=== PATIENT | female | born 1945 | race Caucasian/White ===

== ENCOUNTER → 2016-10-28 | Outpatient (CLI) | payer MEDICARE ==
[~2016-10-28] MED LIST: CELEXA20 MG PO; LEVOTHYROXIN0.112 M1 PO; PHENYTOIN 100M100 MG PO; SIMVASTATIN20 MG PO
--- NOTE | 2016-11-05 07:33 | RADIOLOGY REPORT PS360 ---
DIG MAMM-SCREEN JANIE W/CAD CAD Screening COMPARISON: None, previous mammograms have been purged INDICATION: There is a history of breast cancer in patient's sister diagnosed before menopause TECHNIQUE: Standard CC and MLO images were obtained. R2 CAD reviewed. FINDINGS: Moderate scattered fibro glandular densities are seen throughout both breasts. There are 2 asymmetric nodular densities right breast at least one of which likely is an intramammary node. There are benign-appearing calcination is in each breast. There are no suspicious microcalcifications. IMPRESSION: Fibrofatty parenchyma with asymmetric densities right breast likely benign but recommend patient return for spot compression views and ultrasound for additional evaluation. BI-RADS CATEGORY: 0_Incomplete: Need additional imaging RECOMMENDED FOLLOWUP: ADD ADDITIONAL IMAGING (A letter has been sent to the patient regarding results of the study.)
== END ==
LOC: RAD 09:24
DX: Z12.31 Encounter for screening mammogram for malignant neoplasm of breast (principal)
CPT/HCPCS: G0202

== ENCOUNTER → 2016-11-17 | Outpatient (CLI) | payer MEDICARE ==
--- NOTE | 2016-11-24 10:26 | RADIOLOGY REPORT PS360 ---
DIG MAMM-DX UNI A/VW-RT W/CAD, US BREAST-RT COMPLETE W/AXILLA COMPARISON: 10/28/2016. Older exams have been purged and are not available for review. Reports are made available. The images however are not available for review. The report is slightly delayed in hopes of obtaining old films for comparison. They however are not available having been purged. INDICATION: Follow-up abnormal mammogram ORDERING PHYSICIAN: Monica Fish MD PATIENT AGE: 71 years TECHNIQUE: Spot compression views are obtained along with right breast ultrasound. FINDINGS: The asymmetric density present in the upper outer aspect of the right breast is less apparent on focal spot compression views probably related asymmetric fibroglandular tissue. A focal nodular asymmetric density measuring 8 x 6 mm is present in the medial aspect of the right breast near the 3:00 region. This does not dissipate on the focal spot compression views. There are some faint calcifications also present in this region. Right breast ultrasound: There is a 7 x 6 mm area of hypoechogenicity at the 2:00 region of the right breast which may correspond to the mammographic abnormality. This does not have properties of a simple cyst having some low level internal echoes with some minimal irregularity. IMPRESSION: Mildly suspicious nodule medial aspect of right breast. BI-RADS CATEGORY: 4_Suspicious Abnormality RECOMMENDED FOLLOWUP: Ultrasound guided mammotome biopsy of the right breast (A letter has been sent to the patient regarding results of the study.)
== END ==
LOC: RAD 12:15
DX: R92.8 Other abnormal and inconclusive findings on diagnostic imaging of breast (principal)
CPT/HCPCS: G0206-RT